=== PATIENT | male | born 2000 | race African-American/Black ===

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

== ENCOUNTER 2020-04-25 00:01 | Emergency (ER) | payer SELFPAY ==
--- NOTE | 2020-04-25 00:18 | ER Document Report ---
ED Medical Screen (RME) - General Chief Complaint: Ear Pain Stated Complaint: EAR AND BACK PAIN Time Seen by Provider: 04/25/20 00:10 Primary Care Provider: BLAIR SANCHEZ APRN [Primary Care Provider] - Follow up as needed Mode of Arrival: Ambulatory Information source: Patient Notes: Patient is a 20-year-old male comes the emergency room complaining of bilateral ear pain with trouble hearing and also history of 1 week onset of abdominal pain with back pain. Patient states that he drinks alcohol on a daily basis he drinks about a half a bottle/after fifth of Richard Lopez a day. He did not denies drugs but does smoke. He also states that he is not eating well. Vital signs show a blood pressure 150/73, heart rate is 62, saturation 97% room air and respiratory rate of 18. Physical examination: Patient is a thin appearing 20-year-old male no apparent distress with a flat affect Cardiac: Regular rate and rhythm without any murmurs. Lungs: Bilateral breath sounds increased clear throughout no rhonchi rales or wheeze. Abdomen in the sitting position patient displays some mild left-sided tenderness in the left upper and left lower abdomen. HEENT: Examination patient had upper airway especially his ears show bilateral external canals was soft cerumen moderately filled. I have greeted and performed a rapid initial assessment of this patient. A comp rehensive ED assessment and evaluation of the patient, analysis of test results and completion of the medical decision making process will be conducted by additional ED providers. Dictation of this chart was performed using voice recognition software; therefore, there may be some unintended grammatical errors. TRAVEL OUTSIDE OF THE [place] IN LAST 30 DAYS: No - Related Data Allergies/Adverse Reactions: No Known Allergies Allergy (Verified 09/20/16 18:49) Past Medical History - Social History Frequency of alcohol use: Heavy Drug Abuse: Marijuana - Past Medical History Cardiac Medical History: Denies: Hx Atrial Fibrillation, Hx Congestive Heart Failure, Hx Coronary Artery Disease, Hx DVT, Hx Heart Attack, Hx Hypercholesterolemia, Hx Hypertension, Hx Peripheral Vascular Disease, Hx Pulmonary Embolism Pulmonary Medical History: Denies: Hx Asthma, Hx Bronchitis, Hx COPD, Hx Pneumonia Neurological Medical History: Denies: Hx Cerebrovascular Accident, Hx Migraine, Hx Seizures Endocrine Medical History: Denies: Hx Diabetes Mellitus Type 1, Hx Diabetes Mellitus Type 2, Hx Graves' Disease, Hx Hyperthyroidism, Hx Hypothyroidism Renal/ Medical History: Denies: Hx Benign Prostatic Hyperplasia, Hx End Stage Renal Disease, Hx Epididymitis, Hx Hemodialysis, Hx Hydrocele, Hx Kidney Stones, Hx Peritoneal Dialysis, Hx Renal Insufficiency, Hx Testicular Torsion, Hx Varicocele Malignancy Medical History: Denies Hx Bone Cancer, Denies Hx Brain Cancer, Denies Hx Colorectal Cancer, Denies Hx Leukemia, Denies Hx Liver Cancer, Denies Hx Lung Cancer, Denies Hx Lymphoma, Denies Hx Pancreatic Cancer, Denies Hx Prostate Cancer, Denies Hx Renal (Kidney) Cancer, Denies Hx Skin Cancer, Denies Hx Testicular Cancer GI Medical History: Denies: Hx Cirrhosis, Hx Crohn's Disease, Hx Diverticulitis, Hx Gastritis, Hx Gastroesophageal Reflux Disease, Hx Hepatitis, Hx Hiatal Hernia, Hx Irritable Bowel, Hx Liver Failure, Hx Ulcer, Hx Ulcerative Colitis Skin Medical History: Denies Hx Cellulitis, Denies Hx Eczema, Denies Hx MRSA, Denies Hx Psoriasis Psychiatric Medical History: Denies: Hx Anxiety, Hx Attention Deficit Hyperactivity Disorder, Hx Bipolar Disorder, Hx Borderline Personality Disorder, Hx Dementia, Hx Depression, Hx Obsessive Compulsive Disorder, Hx Personality Disorder, Hx Post Traumatic Stress Disorder, Hx Schizoaffective Disorder, Hx Schizophrenia Traumatic Medical History: Denies: Hx Fractures, Hx Gunshot Wound, Hx Liver Laceration, Hx Pneumothorax, Hx Spine Fracture, Hx Spleen Laceration/Rupture, Hx Traumatic Brain Injury Infectious Medical History: Denies: Hx Hepatitis - Immunizations Immunizations up to date: Yes Hx Diphtheria, Pertussis, Tetanus Vaccination: Yes Physical Exam - Vital signs Vitals: Temp Pulse Resp BP Pulse Ox 98.0 F 62 18 150/73 H 97 04/25/20 00:06 04/25/20 00:06 04/25/20 00:06 04/25/20 00:06 04/25/20 00:06 Course - Vital Signs Vital signs: Temp Pulse Resp BP Pulse Ox 98.0 F 62 18 150/73 H 97 04/25/20 00:06 04/25/20 00:06 04/25/20 00:06 04/25/20 00:06 04/25/20 00:06 Doctor's Discharge - Discharge Referrals: BLAIR SANCHEZ APRN [Primary Care Provider] - Follow up as needed
[2020-04-25 00:44] LABS: ABSOLUTE EOSINOPHILS # (AUTO) 0.2 10^3/uL (0.0-0.6); ABSOLUTE LYMPHOCYTES (AUTO) 2.5 10^3/uL (0.5-4.7); ABSOLUTE NEUT (AUTO) 6.6 10^3/uL (1.7-8.2); BASOPHILS % (AUTO) 0.3 % (0-2); EOSINOPHILS % (AUTO) 1.5 % (0-6); HEMATOCRIT 44.2 % (37.9-51.0); HEMOGLOBIN 15.2 g/dL (13.5-17.0); LYMPHOCYTES % (AUTO) 24.6 % (13-45); MEAN CORPUSCULAR HEMOGLOBIN 30.6 pg (27.0-33.4); MEAN CORPUSCULAR HGB CONC 34.4 g/dL (32.0-36.0); MEAN CORPUSCULAR VOLUME 89 fl (80-97); MONOCYTES % (AUTO) 9.4 % (3-13); PLATELET COUNT 239 10^3/uL (150-450); RED BLOOD COUNT 4.98 10^6/uL (4.35-5.55); RED CELL DISTRIBUTION WIDTH 13.7 % (11.5-14.0); SEGMENTED NEUTROPHILS % (AUTO) 64.2 % (42-78); TOTAL CELLS COUNTED % (AUTO) 100 %; WHITE BLOOD COUNT 10.3 10^3/uL (4.0-10.5)
[2020-04-25] MEDS ORDERED: NORMAL SALINE 1000 ML 1,000 ML IV ONE (00:45)
--- NOTE | 2020-04-25 00:55 | ER Document Report ---
ED General - General Mode of Arrival: Ambulatory TRAVEL OUTSIDE OF THE [place] IN LAST 30 DAYS: No <RICARDO GARCIALASHAUN Heart - Last Filed: 04/25/20 01:08> <JOSE ALBERTO SHANNON - Last Filed: 04/25/20 01:51> - General Chief Complaint: Ear Pain Stated Complaint: EAR AND BACK PAIN Time Seen by Provider: 04/25/20 00:10 Primary Care Provider: BLAIR SANCHEZ APRN [NO LOCAL MD] - Follow up as needed - [facility] Notes: Patient is a 20-year-old male who presents to the emergency department for evaluation of abdominal pain. Is in the epigastric region. He described it as a burning. It occasionally radiates to the back. It is not constant. It seems to be exacerbated by exercise as well as drinking alcohol. The patient admits that this pain has been more prominent since his mother was admitted to hospice for stage IV breast cancer. He states he has been drinking heavily since then. He denies any fevers or chills. No nausea or vomiting. He has had a diminished appetite. He does have some dysuria. He has a history of chlamydia, it feels similar. He is sexually active. Normal bowel movements. (SHASHI GARCIA) - Related Data Allergies/Adverse Reactions: No Known Allergies Allergy (Verified 09/20/16 18:49) Past Medical History - General Information source: Patient - Social History Smoking Status: Current Every Day Smoker Frequency of alcohol use: Heavy Drug Abuse: Marijuana Family History: Reviewed & Not Pertinent, Malignancy Patient has homicidal ideation: No - Past Medical History Cardiac Medical History: Denies: Hx Atrial Fibrillation, Hx Congestive Heart Failure, Hx Coronary Artery Disease, Hx DVT, Hx Heart Attack, Hx Hypercholesterolemia, Hx Hypertension, Hx Peripheral Vascular Disease, Hx Pulmonary Embolism Pulmonary Medical History: Denies: Hx Asthma, Hx Bronchitis, Hx COPD, Hx Pneumonia Neurological Medical History: Denies: Hx Cerebrovascular Accident, Hx Migraine, Hx Seizures Endocrine Medical History: Denies: Hx Diabetes Mellitus Type 1, Hx Diabetes Mellitus Type 2, Hx Graves' Disease, Hx Hyperthyroidism, Hx Hypothyroidism Renal/ Medical History: Denies: Hx Benign Prostatic Hyperplasia, Hx End Stage Renal Disease, Hx Epididymitis, Hx Hemodialysis, Hx Hydrocele, Hx Kidney Stones, Hx Peritoneal Dialysis, Hx Renal Insufficiency, Hx Testicular Torsion, Hx Varicocele Malignancy Medical History: Denies Hx Bone Cancer, Denies Hx Brain Cancer, Denies Hx Colorectal Cancer, Denies Hx Leukemia, Denies Hx Liver Cancer, Denies Hx Lung Cancer, Denies Hx Lymphoma, Denies Hx Pancreatic Cancer, Denies Hx Prostate Cancer, Denies Hx Renal (Kidney) Cancer, Denies Hx Skin Cancer, Denies Hx Testicular Cancer GI Medical History: Denies: Hx Cirrhosis, Hx Crohn's Disease, Hx Diverticulitis, Hx Gastritis, Hx Gastroesophageal Reflux Disease, Hx Hepatitis, Hx Hiatal Hernia, Hx Irritable Bowel, Hx Liver Failure, Hx Ulcer, Hx Ulcerative Colitis Skin Medical History: Denies Hx Cellulitis, Denies Hx Eczema, Denies Hx MRSA, Denies Hx Psoriasis Psychiatric Medical History: Denies: Hx Anxiety, Hx Attention Deficit Hyperactivity Disorder, Hx Bipolar Disorder, Hx Borderline Personality Disorder, Hx Dementia, Hx Depression, Hx Obsessive Compulsive Disorder, Hx Personality Disorder, Hx Post Traumatic Stress Disorder, Hx Schizoaffective Disorder, Hx Schizophrenia Traumatic Medical History: Denies: Hx Fractures, Hx Gunshot Wound, Hx Liver Laceration, Hx Pneumothorax, Hx Spine Fracture, Hx Spleen Laceration/Rupture, Hx Traumatic Brain Injury Infectious Medical History: Denies: Hx Hepatitis - Immunizations Immunizations up to date: Yes Hx Diphtheria, Pertussis, Tetanus Vaccination: Yes <SHASHI GARCIA M - Last Filed: 04/25/20 01:08> Review of Systems - Review of Systems Constitutional: No symptoms reported EENT: No symptoms reported Cardiovascular: No symptoms reported Respiratory: No symptoms reported Gastrointestinal: See HPI Genitourinary: See HPI Male Genitourinary: See HPI Musculoskeletal: No symptoms reported Skin: No symptoms reported Neurological/Psychological: No symptoms reported -: Yes All other systems reviewed and negative <SHASHI GARCIA M - Last Filed: 04/25/20 01:08> Physical Exam <SHASHI GARCIA M - Last Filed: 04/25/20 01:08> - Vital signs Vitals: Temp Pulse Resp BP Pulse Ox 98.0 F 62 18 150/73 H 97 04/25/20 00:06 04/25/20 00:06 04/25/20 00:06 04/25/20 00:06 04/25/20 00:06 - Notes Notes: Vital signs reviewed, please refer to chart. Head is normocephalic, atraumatic. Pupils equal round, reactive to light. Bilateral external auditory canals are impacted with cerumen. Neck is supple without meningismus. Heart is regular rate and rhythm. Lungs are clear to auscultation bilaterally. Abdomen is soft, mildly tender in the epigastric region without rebound or guarding, normoactive bowel sounds throughout. Extremities without cyanosis, clubbing. Posterior calves are nontender. Peripheral pulses are equal. Skin is warm and dry. Patient is awake, alert, neurological exam is nonfocal. Genital exam is performed with ROSALINE Murray, present in the room. Circumcised male with appropriate [place] staging. Bilateral testicles are descended. No urethral discharge. There is a patch of scaly what appears to be dyshidrotic skin on the underside of the penis, but I do not see any lesions. Intact cremasteric reflex. No testicle tenderness. (SHASHI GARCIA) Course - Laboratory Result Diagrams: 04/25/20 00:28 04/25/20 00:28 <SHASHI GARCIA - Last Filed: 04/25/20 01:08> - Laboratory Result Diagrams: 04/25/20 00:28 04/25/20 00:28 <JOES ALBERTO SHANNON - Last Filed: 04/25/20 01:51> - Re-evaluation Re-evalutation: 04/25/20 01:00 Patient presents emergency department for evaluation of epigastric pain, clogged ears, dysuria. In regards to his ears, they do appear to be impacted with cerumen. Irrigation is ordered. In regards to his abdomen, this is likely secondary to increased stress as well as alcohol use. He is told to quit binge drinking. I will write a prescription for Pepcid. In regards to his dysuria and penile sore, I do not see any obvious signs of herpetic infection or other problem. I am inclined to treat empirically for gonorrhea and chlamydia given his dysuria and young age, as well as his history. He is amenable to this. (SHASHI GARCIA) 04/25/20 01:33 Lipase is borderline at 490. However on my exam patient's abdomen he has no tenderness, he is not vomiting, he has no current complaints of abdominal pain. I still have a stronger suspicion of gastritis at this point, based on his evaluation. Patient has leukocytes and leukocyte esterase in the urine suggesting urethritis, based on patient's complaint is most likely secondary to an STD. He has been prophylactically treated. He was evaluated after irrigation and are very much improved and almost patent. I discussed findings with patient, importance of treatment of his partner, alcohol and other exacerbating factor restrictions in regards to gastritis and to avoid pancreatitis, discussed follow-up instructions and return precautions. Patient states appreciation and agreement. Stable and well-appearing at time of discharge. (JOSE ALBERTO SHANNON) - Vital Signs Vital signs: Temp Pulse Resp BP Pulse Ox 98.0 F 62 18 150/73 H 97 04/25/20 00:06 04/25/20 00:06 04/25/20 00:06 04/25/20 00:06 04/25/20 00:06 - Laboratory Laboratory results interpreted by me: 04/25/20 04/25/20 00:28 00:47 Total Protein 8.5 H Lipase 490.4 H Urine Protein 30 H Urine Urobilinogen 2.0 H Ur Leukocyte Esterase LARGE H Discharge <SHASHI GARCIA - Last Filed: 04/25/20 01:08> <JOSE ALBERTO SHANNON - Last Filed: 04/25/20 01:51> - Discharge Clinical Impression: Dysuria, Epigastric abdominal pain Cerumen impaction Qualifiers: Laterality: bilateral Qualified Code(s): H61.23 - Impacted cerumen, bilateral Condition: Stable Disposition: HOME, SELF-CARE Instructions: Abdominal Pain ([facility]), Cerumen Impaction ([facility]) Additional Instructions: You have been treated empirically for gonorrhea and chlamydia. Please practice safe sex. Avoid sexual intercourse for 1 week. It is important that your partner also be treated. Please try to stop binge drinking alcohol. Take Pepcid as needed for abdominal pain. Follow-up with your primary care provider this week. Return to the emergency department with worsening or new concerning symptoms of any sort. Prescriptions: Famotidine [Pepcid 20 mg Tablet] 20 mg PO DAILY #14 tablet Referrals: BLAIR SANCHEZ APRN [NO LOCAL MD] - Follow up as needed
[2020-04-25 01:06] LABS: ALKALINE PHOSPHATASE 92 U/L (38-126); ANION GAP 9 (5-19); ASPARTATE AMINO TRANSFERASE 31 U/L (17-59); BILIRUBIN,TOTAL 0.8 mg/dL (0.2-1.3); BLOOD UREA NITROGEN 16 mg/dL (7-20); CALCIUM 10.2 mg/dL (8.4-10.2); CARBON DIOXIDE 28 mmol/L (22-30); CHLORIDE 103 mmol/L (98-107); GLUCOSE 97 mg/dL (75-110); POTASSIUM 3.8 mmol/L (3.6-5.0); TOTAL PROTEIN 8.5 g/dL (6.3-8.2)
[2020-04-25] MEDS ORDERED: AZITHROMYCIN 250 MG TABLET PO ONE (01:06)
[2020-04-25] MEDS ORDERED: CEFTRIAXONE INJ 250 MG VIAL IV ONE (01:07)
[2020-04-25 01:20] LABS: APPEARANCE,URINE SLIGHTLY-CLOUDY; BILIRUBIN,URINE NEGATIVE (NEGATIVE); COLOR,URINE YELLOW; GLUCOSE, URINE NEGATIVE (NEGATIVE); KETONES,URINE NEGATIVE (NEGATIVE); LEUKOCYTE ESTERASE,URINE LARGE (NEGATIVE); NITRITE,URINE NEGATIVE (NEGATIVE); PROTEIN,URINE 30 mg/dL (NEGATIVE); URINE SPECIFIC GRAVITY 1.029
[2020-04-25 02:13] VITALS: BP 134/89
[2020-04-25 04:04] LABS: CHLAM PCR DETECTED (NOT DETECT)
== END 2020-04-25 02:11 | disposition home or self-care (01) ==
LOC: ER 00:01
DX: R30.0 Dysuria (principal); R10.13 Epigastric pain; H61.23 Impacted cerumen, bilateral; F17.200 Nicotine dependence, unspecified, uncomplicated
CPT/HCPCS: 99284; 96361; 96365; 36415; 83690; 85025; 80053; 81001; 87491; 87591; J7030; J0696